=== PATIENT | female | born 1940 | race Caucasian/White ===

== ENCOUNTER 2022-07-15 15:28 | Emergency (ER) | payer OTHER ==
[~2022-07-15] VITALS: Ht 154.9 cm; Wt 78.5 kg
[~2022-07-15 15:28] MED LIST: BIOTIN1000 MCG; CIPROFLOXACIN750 MG PO; CLONAZEPAM1 MG PO; DOCUSATE SODIU100 MG PO; GABAPENTIN800 MG PO; GEMFIBROZIL600 MG; HYZAAR 100-251 UDTAB; HYZAAR 100-251 UDTAB PO; NEURONTIN300 MG; PERCOCET 5/3251 TAB PO; SYNTHROID50 MCG; TRAMADOL HCL300 MG; VERAPAMIL ER240 MG; VITAMIN D35000 UNIT
[2022-07-15] MEDS ORDERED: DIOVAN40 MG PO (16:46)
[2022-07-15] MEDS ORDERED: PROTONIX20 MG PO (16:47)
== END 2022-07-15 20:40 | disposition home or self-care (01) ==
LOC: ER 15:28
DX: S09.90XA Unspecified injury of head, initial encounter (principal); W18.30XA Fall on same level, unspecified, initial encounter; Y93.9 Activity, unspecified; Y92.63 Factory as the place of occurrence of the external cause; E03.9 Hypothyroidism, unspecified; I10 Essential (primary) hypertension; G62.9 Polyneuropathy, unspecified; Z88.0 Allergy status to penicillin; Z91.041 Radiographic dye allergy status; Z88.2 Allergy status to sulfonamides; Z88.6 Allergy status to analgesic agent

== ENCOUNTER 2024-06-23 14:43 | Emergency (ER) | payer OTHER ==
[~2024-06-23] VITALS: Ht 154.9 cm; Wt 78.9 kg
[~2024-06-23 14:43] MED LIST changes: +DIOVAN40 MG PO; +PROTONIX20 MG PO
[2024-06-23] MEDS ORDERED: CARAFATE1 GM PO (15:55)
[2024-06-23] MEDS ORDERED: ACETAMINOPHEN 500 MG GEL..CAP PO ONE ×2 (16:39→16:45)
[2024-06-23] MEDS ORDERED: hydrOXYzine PAMOATE 25 MG CAPSULE PO ONE ×2 (16:39→16:45)
[2024-06-23 17:00] LABS: HEMATOCRIT 37.3 % (36.0-45.00); HEMOGLOBIN 13.1 g/dL (12.0-15.00); MEAN CELL VOLUME 90.8 fL (80.00-100.00); MEAN CORPUSCULAR HEMOGLOBIN 31.8 pg (27.00-32.0); MEAN CORPUSCULAR HGB CONC 35.1 g/dl (32.0-36.0); PLATELET COUNT 288 K/uL (150-450); RED BLOOD COUNT 4.11 M/uL (4.00-6.00); RED CELL DISTRIBUTION WIDTH 14.2 % (11.5-14.5)
[2024-06-23 17:57] LABS: BILIRUBIN TOTAL 0.53 mg/dL (0.3-1.2); CALCIUM 10.1 mg/dL (8.5-10.1); CREATININE SERUM 1.01 mg/dL (0.55-1.02); GFR 52.09; GLOBULINA 3.1 G/DL (2.4-3.5); POTASSIUM 5.19 mEq/L (3.5-5.1); TOTAL PROTEIN 7.1 gm/dL (6.4-8.2)
== END 2024-06-23 19:41 | disposition home or self-care (01) ==
LOC: ER 14:45
PROVIDERS: Emergency Medicine
DX: I10 Essential (primary) hypertension (principal); R51.9 Headache, unspecified; Z20.822 Contact with and (suspected) exposure to COVID-19; Z88.0 Allergy status to penicillin; Z91.041 Radiographic dye allergy status